=== PATIENT | female | born 1940 | race Two or more races ===

== ENCOUNTER → 2016-07-18 | Outpatient (CLI) | payer MEDICARE, OTHER, MEDICAID ==
[~2016-07-18] MED LIST: ADVIL200 MG PO; INDOCIN50 MG PO; LIPITOR40 MG PO; NEURONTIN300 MG PO; NOVOLOG100 UNIT/M SUB-Q; PRINIVIL (ZESTRI5 MG PO; PROTONIX40 MG PO; PROVENTIL OR V6.7 GM INH; REGLAN ORAL5 MG/5 ML PO; SUMATRIPTAN SUC25 MG PO; TOUJEO SOL300 UNIT/1 SUB-Q; TRIAMCINOLONE L60 ML TOP; TYLENOL EXTRA500 MG PO; ULTRAM50 MG PO
== END | disposition disaster alternative care site (69) ==
LOC: GBCOE 10:09
DX: Z12.31 Encounter for screening mammogram for malignant neoplasm of breast (principal)
CPT/HCPCS: G0202

== ENCOUNTER → 2016-09-04 | Outpatient (CLI) | payer MEDICARE, OTHER, MEDICAID | END | disposition disaster alternative care site (69) | LOC: GRAD 15:42 | DX: R51 Headache (principal); H53.2 Diplopia; H49.12 Fourth [trochlear] nerve palsy, left eye | CPT/HCPCS: A9577 ==

== ENCOUNTER 2016-09-07 11:21 | Inpatient (IN) | payer MEDICARE, OTHER, MEDICAID ==
[~2016-09-07] VITALS: Ht 157.5 cm; Wt 83.3 kg
--- NOTE | ~2016-09-07 | CON ---
[facility]GE[facility] 76 Y [address] ROOM: [place] [address] LOCATION: [facility] [place] ADMIT DATE: 09/07/2016 Consultation DISCHARGE DATE: FAMILY PHYSICIAN: Cheyenne Amaya MD ATTENDING PHYSICIAN: Digna JACKSON REFERRING PHYSICIAN: KAELYN SARAH MD REASON FOR CONSULT: Endoscopy. HISTORY OF PRESENT ILLNESS: This is a 76-year-old white female, who was admitted with a history of persistent nausea and vomiting in the setting of intractable migraine headaches and use of nonsteroidals. I was asked to see her in regard to regard to endoscopy in view of blood-tinged vomitus after a previous several episodes of vomiting. Her hemoglobin is stable. She denies any abdominal pain. She does carry a previous history of hiatal hernia and acid reflux disease. She also states that she ate at "[facility]" and may have some bearing to her symptoms of nausea, vomiting, and diarrhea. She has not had any further loose stools since after admission. She carries a remote history of C difficile colitis, but back in 2013. PAST MEDICAL HISTORY: 1. Hypertension. 2. Diabetes. 3. Osteoporosis. 4. Hiatal hernia and GERD. 5. Intractable back pains. PAST SURGICAL HISTORY: Cholecystectomy. MEDICATIONS: Multiple includin. Proventil inhaler. 2. Neurontin. 3. Lipitor. 4. Vitamin D. 5. Ibuprofen. 6. Insulin. 7. Lisinopril. 8. Tramadol. ALLERGIES: PATIENT'S NAME: [facility] AGE: 76 Y [address] ROOM: [place] [address] LOCATION: [facility] [place] ADMIT DATE: 09/07/2016 Consultation DISCHARGE DATE: FAMILY PHYSICIAN: Cheyenne Amaya MD ATTENDING PHYSICIAN: Digna JACKSON MULTIPLE NOTED IN THE RECORDS. SOCIAL HISTORY: Negative for smoking or alcohol use. PHYSICAL EXAMINATION: GENERAL: Elderly female, in no acute distress. VITAL SIGNS: Afebrile. Vital signs are otherwise stable. She is awake, alert and appropriate. HEENT: Nonicteric sclerae. Pupils round and reactive. NECK: Supple. No palpable nodes or thyromegaly. CHEST: Clear to auscultation. HEART: S1 and S2 normal. ABDOMEN: Soft and benign without palpable masses or tenderness. LABORATORY DATA: CBC is normal. IMAGING DATA: CT scan of the abdomen done in the ER did not reveal any acute abnormalities. ASSESSMENT AND PLAN: Elderly patient with intractable nausea, vomiting, possible Liat-Dickens tear in the setting of nonsteroidal use, diabetes, possible gastroparesis, and multiple other comorbidities. I agree with proton pump inhibitor. Follow up hematocrit and need for upper endoscopy for diagnostic and therapeutic purposes. Thank you for this consult. Further recommendations postendoscopy. EMILIAM MD TIGRE SARAH/phoebe /[id number] d: 09/07/16 2313 t: 09/08/16 0953, CONSULTATION REPORT
--- NOTE | ~2016-09-07 | OR ---
PATIENT'S NAME: RL KIM [facility] AGE: 76 Y [address] ROOM: [address] [address] LOCATION: [facility] [place] ADMIT DATE: 09/10/2016 OR/Procedure Report DISCHARGE DATE: FAMILY PHYSICIAN: Cheyenne Amaya MD ATTENDING PHYSICIAN: Digna JACKSON SURGEON: Kp Amador MD AMUSEMENT OR RECREATION CARD CHECKER: DATE OF PROCEDURE: 09/11/2016 PREOPERATIVE DIAGNOSIS: Chronic left-sided headaches with vision changes. POSTOPERATIVE DIAGNOSIS: Chronic left-sided headaches with vision changes. PROCEDURE PERFORMED: Left temporal artery biopsy. ANESTHESIA: MAC with local. SPECIMEN: Left temporal artery. ESTIMATED BLOOD LOSS: 5 mL. REASON FOR PROCEDURE: The patient is a 76-year-old female, who was admitted with nausea and vomiting. She has had a left-sided headache for several weeks now. A left temporal artery biopsy was requested. The risks and benefits were discussed. FINDINGS: We excised a centimeter and a half section of vessel where the palpable temporal artery was. It did have more of a vein appearance, but I could not find any other vessels in the area. PROCEDURE IN DETAIL: The patient was taken to the operating suite and placed in the supine position with the head rotated to the right side. We carefully palpated the left superficial temporal artery in front of the ear and marked its course. The area was then prepped and draped. Lidocaine was infiltrated into the area. A 3 cm vertical incision was made directly over the palpable pulse. The full-thickness skin was incised. Superficial fascial layer was then opened and a vessel was apparent directly underneath this, was fairly thin-walled. There was no longer pulse palpable in the area. We freed this up with blunt dissection. It was then tied off proximally and distally. There was a side branch that tore during the mobilization. We ended up taking 1 cm section of this as well. The ends were tied off with Vicryl suture. We did have a minor bleeding point that we tied off with a Monocryl suture. We then carefully explored the area. There were no other visible or palpable vessels. The wound was closed with subcuticular Monocryl. Dermabond was applied. PATIENT'S NAME: RL KIM [facility] AGE: 76 Y [address] ROOM: [id number] [place], [place] [address] LOCATION: [facility] [place] ADMIT DATE: 09/10/2016 OR/Procedure Report DISCHARGE DATE: FAMILY PHYSICIAN: Cheyenne Amaya MD ATTENDING PHYSICIAN: Digna JACKSON POSTPROCEDURE PLAN: The patient will be sent back to her room. She will resume diet and previous orders as before. MD PIERRE CLARK/modl /[id number] d: 09/11/16 1806 t: 09/26/16 1348, OPERATIVE SUMMARY
--- NOTE | ~2016-09-07 | ER ---
PATIENT'S NAME: RL NERI [facility] AGE: 76 Y [address] ROOM: [address] [place], [place] [address] [place] [facility] [place]: 09/07/2016 ER/Outpatient Report DISCHARGE DATE: FAMILY PHYSICIAN: Cheyenne Amaya MD ATTENDING PHYSICIAN: Digna PICKARD CHIEF COMPLAINT: Nausea and vomiting with abdominal pain. HISTORY OF PRESENT ILLNESS: Ms. Neri has been struggling with headaches on the left side of her face for the better part of 3 months. She has occasionally had some vomiting with severe pain, however, over the last 3 days, her vomiting has become near constant. She has had significant difficulty keeping up with her hydration and oral intake otherwise. She has been seeing her primary care physician for these issues, but feels she is not getting the relief she needs. She denies any other falls or other issues. She does have intermittent blurry vision, which is related to her headaches but is not new. She did have an MRI about 3 days ago. She has also been having some diarrhea associated with this in addition to night sweats for several months. She denies weight loss but does endorse some weight gain. No other acute issues at this time. PAST MEDICAL HISTORY: Documented on the record and reviewed by me. SOCIAL HISTORY: Documented on the record and reviewed by me. MEDICATIONS: Documented on the record and reviewed by me. ALLERGIES: DOCUMENTED ON THE RECORD AND REVIEWED BY ME. REVIEW OF SYSTEMS: All systems reviewed and negative except as noted in the HPI. PHYSICAL EXAMINATION: VITAL SIGNS: Blood pressure is 188/79, pulse 90, respiratory rate is 18, temperature 99.5, SpO2 is 98% on room air. Pain 0/10. GENERAL: An age-appropriate female, in no obvious pain or distress, recently vomited, sitting upright on the exam table. NEUROLOGIC: Awake and alert. GCS 15. No focal deficits. No asymmetry. HEENT: Normocephalic, atraumatic. Eyes are PERRL. Oropharynx is clear. NECK: Supple. Trachea is midline. PATIENT'S NAME: RL [facility]ERI [facility] AGE: 76 Y [address] ROOM: [address] [address] [place] [facility] [place]: 09/07/2016 ER/Outpatient Report DISCHARGE DATE: FAMILY PHYSICIAN: Cheyenne Amaya MD ATTENDING PHYSICIAN: Digna PICKARD CHEST: Heart is regular rate and rhythm with no murmurs. LUNGS: Clear to auscultation bilateral with no rhonchi, wheezes, or rales. ABDOMEN: Soft, slightly tender in the epigastrium. No rebound, guarding, or masses. BACK: Normal to inspection and palpation. EXTREMITIES: Warm and well perfused without appreciable edema or erythema. SKIN: Clean, dry, and intact. LABORATORY DATA AND X-RAYS: EKG was obtained and found to be consistent with sinus rhythm, rate of 90 with normal intervals and left axis deviation. No signs of acute dysrhythmia or ischemia. No comparison available. CMS with a creatinine of 1.4. GFR is 37. Review from April indicates baseline creatinine of approximately 0.7. No electrolyte abnormalities appreciated other than elevated glucose of 287. CK- MB and troponin are not elevated. CRP is 2.62. Urinalysis with no leukocytes or nitrites, some blood, micro is nondiagnostic. CBC without appreciable abnormality. INR is 1. Procalcitonin is 0.12. Serum lactate is 3.9. IMPRESSION: 1. Intractable nausea, vomiting. 2. Azotemia with likely acute kidney injury. 3. Lactic acidemia. EMERGENCY DEPARTMENT COURSE: The patient was seen and evaluated. She was given 2 doses of Zofran and a liter of normal saline. This markedly improved her vomiting but did not completely resolve it. She continued to have some vomiting. She was feeling better, however, with her acute kidney injury, she will need to be observed for improvement and ensure that she can adequately hydrated. All questions were answered, and the patient was admitted to the hospitalist service of Dr. Pickard for further evaluation and treatment. MD TONYA BRAVO/phoebe /[id number] d: 09/07/16 2316 t: 09/17/16 0702, OUTPATIENT REPORT
--- NOTE | ~2016-09-07 | DS ---
PATIENT'S NAME: RL KIM [facility] AGE: 76 Y [address] ROOM: [address] [place] [id number] LOCATION: [facility] [place] ADMIT DATE: 09/10/2016 Discharge Summary DISCHARGE DATE: 09/13/2016 FAMILY PHYSICIAN: Cheyenne Amaya MD ATTENDING PHYSICIAN: Digna Pickard ADMITTING DIAGNOSIS: Intractable nausea and vomiting. DISCHARGE DIAGNOSES: Erosive gastritis, migraine headache, acute kidney injury, and dehydration. SECONDARY DIAGNOSES: Diabetes mellitus type 2, acute kidney injury, migraine headache, and fourth nerve palsy. PROCEDURE: Left temporal artery biopsy and EGD. CONSULTATIONS: General Surgery for temporal artery biopsy, GI consultation for nausea and vomiting, and Neurology for migraine headache. HISTORY OF PRESENTING ILLNESS: The patient is a 76-year-old female with past medical history of diabetes mellitus type 2, hypertension, and GERD, who presents with intractable nausea and vomiting. The patient reports that for the past 2 days, she has been having intractable nausea and vomiting. She reports that she has been having nausea and vomiting closed to every other hour. The patient also reports that her nausea and vomiting is becoming darker with specks of blood. She denied rajani hematemesis. Of note, the patient has had ongoing headache for 2 weeks, associated with nausea, vomiting, and vertigo. However, for the past 2 weeks or so, her headache has subsided, and denies any history of vertigo. 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 The patient has had MRI done as an outpatient for her headache on September 04, 2016, which was unremarkable. HOSPITAL COURSE: The patient was admitted and was found to have acute kidney injury secondary to dehydration. The patient was placed on IV fluid and Protonix 40 mg IV b.i.d. The patient's symptoms somewhat improved, and the patient was seen by Dr. Horta with GI Department. The patient had an EGD done on September 08, which showed hiatal hernia and erosive gastritis. The patient was placed on Protonix 40 mg b.i.d. with improvement of nausea and vomiting. However, during her stay, the patient continued to have headache, which she claims as left-sided, associated with photophobia and nausea. She claims the pain as sharp and throbbing. Photophobia was mostly on her left eye. There was concern for temporal arteritis as the pain is located around the temporal. Initial ESR was below 50. ESR on the was 23. However, PATIENT'S NAME: RL KIM [facility] AGE: 76 Y [address] ROOM: [place] [address] LOCATION: [facility] [place] ADMIT DATE: 09/10/2016 Discharge Summary DISCHARGE DATE: 09/13/2016 FAMILY PHYSICIAN: Cheyenne Amaya MD ATTENDING PHYSICIAN: Digna Pickard due to history of recent diplopia and pain around the temporal, the patient was empirically started on 60 mg of p.o. prednisone and had biopsy done of the temporal arteritis. The patient was continued on prednisone for 2 days until biopsy showed negative for temporal arteritis. Also, her pain symptoms improved with Imitrex during her stay, which goes against temporal arteritis. Prednisone was stopped and the patient was discharged on sumatriptan 25 mg p.o. as needed. The patient was also seen by Dr. 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 The patient was given indomethacin 50 mg to be used if the patient has headache. The patient was only given full dose as the patient has history of GERD. The patient was also told to try indomethacin during this headache and if it is not improving with indomethacin not to continue with the second dose. The patient was also told to follow up with Dr. Cardona as an outpatient. On the day of discharge, the patient was headache free and in stable condition. The patient was also seen by Physical Therapy and was okayed to be discharged home. A long discussion was made about her cranial nerve fourth palsy and was told not to drive and to take extra precaution when going down the stairs. CONDITION: Stable. DISPOSITION: Home. DISCHARGE MEDICATIONS: Please see MAR. PENDING STUDIES: No pending studies. RECOMMENDATION: Not to drive and to take extra precaution going downstairs. FOLLOW-UP: To follow up with primary care physician and Dr. Cardona within 1 week. Greater than 30 minutes was spent on discharge planning. MD LYNN JAMESON/phoebe /[id number] d: 09/14/16614 t: 09/15/16 1749, DISCHARGE SUMMARY
--- NOTE | ~2016-09-07 | CON ---
PATIENT'S NAME: RL NERI [facility] AGE: 76 Y [address] ROOM: [address] [address] LOCATION: [facility] ADMIT DATE: 09/10/2016 Consultation DISCHARGE DATE: 09/13/2016 FAMILY PHYSICIAN: Cheyenne Amaya MD ATTENDING PHYSICIAN: Digna PICKARD DATE OF CONSULTATION: 09/13/2016 REFERRING PHYSICIAN: KAELYN SARAH MD NEUROLOGIC CONSULTATION DATE AND TIME: The patient was seen in neurological consultation on 09/13/2016 at 11:00 a.m. HISTORY OF PRESENT ILLNESS: Ms. Neri is here for treatment of pain into her left head. Apparently by history, she started having what sounds like paroxysmal hemicrania sharp pain that started sometime in May of this year. The pain was shooting pain that would come on occasion. Sometimes it would eventually become continuous consistent with paroxysmal hemicrania continua. I am not sure if she was given the typical medication, indomethacin. She said that she did get some type of pain medicine for, but it eventually went away. At some time around 6 weeks ago, she started to develop a sudden onset of a migraine-like headache around the left eye into the left temporal region. At about that same time, she immediately noted that her visual field in the left eye only was causing her to have double vision. This diplopia was clearly vertical as she saw many objects on top of each other when she would stare at a distance. She apparently was treated for short-term with prednisone and we are not sure, if she received an ESR blood test at that time. She seems to have improved with the pain on the prednisone and this was kept on board here in the hospital with the thought that maybe she had the temporal arteritis type of presentation. The patient did have an ESR reading that was less than 50 and at that time was briefly placed on prednisone. She absolutely denies any loss of vision in the left eye. She has what appears to be good visual acuity. She never experienced any claudication of her chewing or pain into her jaw or denied any problems with muscle pain or stiff neck. At no time did she experience any fever, meningismus, and was maintaining good range of motion, and mental status always remained normal. She denied any pain into her ears. She denied any new rashes such as zoster type rash. There is no excoriation of the skin that would be consistent with shingles episode. For her localized pain, now the patient has had a successful temporal artery biopsy of the left temporal artery. She has some local pain into that area. She says that Tylenol has not really helped her, only tramadol which she takes at home 50 mg is helpful. PATIENT'S NAME: RL NERI [facility] AGE: 76 Y [address] ROOM: [place] [address] LOCATION: [facility] ADMIT DATE: 09/10/2016 Consultation DISCHARGE DATE: 09/13/2016 FAMILY PHYSICIAN: Cheyenne Amaya MD ATTENDING PHYSICIAN: Digna PICKARD PRIOR MEDICAL HISTORY: 1. History of diabetes since 2002. She is insulin dependent since 2004. 2. Also history of hypertension. 3. Gastroesophageal reflux. 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 She lives alone here in [place]. She does not smoke and does not drink alcohol. FAMILY HISTORY: Father had coronary artery disease. There is no diabetes, otherwise, in the family. CURRENT MEDICATIONS: Include: 1. Prednisone 60 mg p.o. q.a.m. 2. Metoclopramide 10 mg 3 times a day with meals. 3. Gabapentin 900 mg q.a.m. 4. Atorvastatin 40 mg p.o. at bedtime. 5. Amlodipine 5 mg p.o. q. day. 6. Insulin detemir 17 units subcutaneous at bedtime. REVIEW OF SYSTEMS: Ms. Neri is a 76-year-old female patient who has a history of diabetes since 2002. 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 She had some pain medicines at that time, apparently she was taking tramadol. It is unclear exactly if this simply faded with time, but it sounded like it did. However, approximately 6 weeks ago, she developed an acute onset of pain in the left eye region, mostly in the left temporal region extending around the eye. She noticed immediately vertical diplopia where she was seeing objects stacked on top of each other. She denied ever having horizontal diplopia. She had no ptosis in the eye. There was no tearing of the eyes. She denied any loss of vision in that eye. She apparently went to an commercial insurance underwriter and he had either diagnosed her with a 3rd nerve palsy followed by a 4th nerve palsy. Today she clearly does have some subtle signs of a 4th nerve palsy. Again she never had any ptosis that would be more consistent with 3rd nerve palsy and she denied any horizontal diplopia. Her diabetic history is associated with oral medications until 2004 when she was started on insulin. She also has gastroesophageal reflux disease and gastritis. The rest of the review of systems here is negative. PHYSICAL EXAMINATION: GENERAL: The patient is sitting upright in the bed. She is pleasant. She answers all questions appropriately. She does occasionally cover up her left PATIENT'S NAME: RL NERI [facility] AGE: 76 Y [address] ROOM: [id number] [place], [place] [address] LOCATION: [facility] ADMIT DATE: 09/10/2016 Consultation DISCHARGE DATE: 09/13/2016 FAMILY PHYSICIAN: Cheyenne Amaya MD ATTENDING PHYSICIAN: Digna PICKARD eye due to the diplopia which is corrected. With covering up her left eye, she appears to be comfortable. She does not appear to be in any acute distress. NEUROLOGIC: She is not complaining about any headache. Her speech is clear and she has no alteration in her mentation. She gave an excellent history. Cranial nerves revealed evidence for correction of her 4th nerve palsy with turning of her head, tilted towards the right. This corrected the vertical diplopia on looking down. I did not appreciate any ophthalmoplegia though perhaps her eye on the left was a bit upward. At no time did she ever say her eye was down and out as a 3rd nerve type of process. There was normal facial sensation bilaterally in V1, V2, and V3. She had a bit of sensory perception pain on the left temporal region in the area of the temporal artery biopsy. She has no pain on opening up her jaw and closing it no pain. There was full masseteric power. She had normal sensation even into her mouth, there are no excoriations of the skin and no obvious signs of any rashes, excoriations, or old vesicles. Ears; the external canal appeared to be clear. Again no excoriations of the skin into her scalp. Her neck was supple on flexion and extension. She had no meningismus throughout. She had normal power of all four extremities, 5/5 grade power with normal bulk and tone. Normal coordination on [id number] and rapid alternating hand movements were normal. She had no pronator drift. I did not test her walking. IMPRESSION: It is clear that Ms. Neri had an acute onset of vertical double vision. It likely also appeared that she had pain associated with that vertical diplopia which persisted over time. 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 At the onset since it does involve infarction of the vasa nervorum surrounding the 4th nerve intracranially. There is no other intracranial abnormalities that I could see and no evidence of a 3rd nerve palsy. There is no other evidence to suggest that she had any meningismus signs presently. The initial paroxysmal hemicrania may return at some point in time, thus indomethacin 50 mg p.o. twice a day p.r.n. may be used and it is typically the drug of choice for that process. All in all, her pain should resolve with time as most diabetic eye neuropathies do. I do not see any need here for prednisone as we have no evidence of further temporal artery involvement such as claudication of the jaw or chewing problems, she can safely be taken off the prednisone. I really do appreciate Dr. Pickard's consultation on this interesting patient. MARI BRAR MD PATIENT'S NAME: RL NERI [facility] AGE: 76 Y [address] ROOM: [place] [address] LOCATION: [facility] ADMIT DATE: 09/10/2016 Consultation DISCHARGE DATE: 09/13/2016 FAMILY PHYSICIAN: Cheyenne Amaya MD ATTENDING PHYSICIAN: Digna PICKARD/phoebe /[id number] d: 09/13/[id number] t: 09/26/16 1738, CONSULTATION REPORT
--- NOTE | ~2016-09-07 | HP ---
PATIENT'S NAME: RL KIM [facility] AGE: 76 Y [address] ROOM: [place] [address] LOCATION: [facility] ADMIT DATE: 09/07/2016 History & Physical DISCHARGE DATE: FAMILY PHYSICIAN: Cheyenne Amaya MD ATTENDING PHYSICIAN: Digna JACKSON DATE OF SERVICE: CHIEF COMPLAINT: Intractable nausea, vomiting. HISTORY OF PRESENT ILLNESS: The patient is a 76-year-old female with past medical history of diabetes mellitus type 2, hypertension, and GERD, who presents here with intractable nausea, vomiting. The patient reports that for the past 2 days, she has been having intractable nausea and vomiting ongoing. She reports that she has been having nausea and vomiting close to every other hour. The patient reports that initially the nausea and vomiting was clear liquid, however, now it is becoming dark. She denies any rajani hematemesis. Of note, the patient has had a headache ongoing for 12 weeks, associated with nausea, vomiting, and vertigo. However, the patient reports that for the past two weeks or so, her headache has subsided and denies any history of vertigo. 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 However, reports that she has not been on steroids for close to 2 weeks. The patient also reports epigastric discomfort with her nausea and vomiting and reports that she has had a cholecystectomy done. The patient now denies any chest pain, shortness of breath, weakness, vertigo, dizziness, or fall. The patient had MRI done for her headache on September 04, 2016, which was unremarkable. The patient was brought in by her granddaughter and actually walked in to the emergency department and denies any history of ataxia. MEDICAL HISTORY: 1. Diabetes mellitus type 2. 2. Hypertension. 3. Hyperlipidemia. 4. Diabetic neuropathy. 5. Hyperlipidemia. 6. Asthma. 7. GERD. SURGICAL HISTORY: and cholecystectomy. PATIENT'S NAME: RL KIM [facility] AGE: 76 Y [address] ROOM: [place] [address] LOCATION: [facility] ADMIT DATE: 09/07/2016 History & Physical DISCHARGE DATE: FAMILY PHYSICIAN: Cheyenne Amaya MD ATTENDING PHYSICIAN: Digna JACKSON FAMILY HISTORY: Dad of heart disease. SOCIAL HISTORY: She is a retired nurse. She denies drinking and smoking. MEDICATIONS: Currently being reconciled. REVIEW OF SYSTEMS: All systems have been reviewed and are negative except for what I mentioned in the HPI. PHYSICAL EXAMINATION: VITAL SIGNS: Temperature 99.5, blood pressure 188/79, pulse rate of 80, respiratory rate of 18, and saturating 98% on room air. GENERAL APPEARANCE: The patient is lying on bed, holding emesis bag close to her. HEAD: Normocephalic, atraumatic. EYES: Extraocular muscle intact. However, the patient reports left-sided double vision when seen in and out. CHEST: Clear to auscultation bilaterally. HEART: Regular rate and rhythm. No murmurs, rubs, or gallops. ABDOMEN: Soft, nontender, and nondistended. SKIN: Warm to touch. [employer] SUPERVISOR: Alert and oriented x3. Motor and sensory grossly intact. No nystagmus noted. The patient is able to walk with no ataxia. MUSCULOSKELETAL: Range of motion intact. No obvious joint effusion seen. IMAGING DATA: CT abdomen shows a few scattered sigmoid colon diverticula with no evidence of diverticulitis, surgically absent gallbladder. LABORATORY DATA: The patient has a lactate of 3.9. Blood glucose of 263. Troponin x1 negative. White blood cell count of 8.7, hemoglobin of 12.8, platelet of 158. Creatinine of 1.4. Sodium of 137, potassium 4.2, chloride of 104, and CO2 of 22. AST 25, ALT 29, alkaline phosphatase 62, total bilirubin 1.1. ESR of 40. EKG shows normal sinus rhythm with no ischemic ST or T-wave changes. There are nonspecific T-wave changes on III. Other than that, no specific ischemic ST and T-wave changes. ASSESSMENT AND PLAN: PATIENT'S NAME: RL KIM [facility] AGE: 76 Y [address] ROOM: [place] [address] LOCATION: [facility] ADMIT DATE: 09/07/2016 History & Physical DISCHARGE DATE: FAMILY PHYSICIAN: Cheyenne Amaya MD ATTENDING PHYSICIAN: Digna JACKSON 1. Acute kidney injury. The patient is a 76-year-old female, presenting with intractable nausea, vomiting, and elevated creatinine, BUN. Creatinine is 1.4 with a baseline creatinine of 0.7. Etiology is most likely secondary to prerenal. We will treat underlying etiology. We will hold lisinopril and other nephrotoxin agents. Continue IV fluid and acquire CMS daily. 2. Intractable nausea, vomiting. The patient is presenting with 2 days' history of intractable nausea, vomiting. Initially, the patient's vomit was clear, however, it is getting darker and also with specks of blood. The patient has a history of hiatal hernia and gastroesophageal reflux disease. We will start the patient on Protonix 40 mg IV b.i.d. Start on clear liquid diet and consult GI for possible EGD evaluation. Also continue supportive care with Zofran, IV fluid for nausea and vomiting. 3. Diabetes mellitus type 2. Blood glucose uncontrolled. Since the patient has not had any diets, we will start the patient on Detemir 15 units q.h.s. and low-sliding scale insulin with aspart. Accu-Chek a.c. and h.s. We will follow the patient clinically. 4. Headache, now resolved. From the history appears headache was migraine. We will have Tylenol p.r.n. as needed. 5. Hyperlipidemia. Continue Lipitor. 6. Asthma. Start DuoNeb as needed. 7. Gastroesophageal reflux disease. On Protonix. Greater than 60 minutes was spent on the patient's care. 50% of the time was spent with direct patient's care. Assessment and plan was discussed with the patient and Dr. Horta of GI Department. Plan to scope the patient to have EGD tomorrow morning. We will admit the patient for observation for intractable nausea, vomiting, and acute kidney injury. Code status on admission, full code. MD TOMI NATHAN/modl /[id number] D: [id number] HISTORY & PHYSICAL
[2016-09-07 12:48] LABS: BASOPHIL % 0.2 %; EOSINOPHIL % 0.1 %; HEMATOCRIT 38.1 % (33.0-46.0); HEMOGLOBIN 12.8 g/dL (10.0-15.0); IMMATURE GRANULOCYTE # 0.1 K/uL (0.0-0.3); IMMATURE GRANULOCYTE % 0.6 %; LYMPHOCYTE # 1.1 K/uL (0.8-4.0); MCH 32.7 pg (27.0-34.0); MCHC 33.6 gm/dL (32.0-36.5); MCV 97.4 fl (83.0-98.0); MONOCYTE # 0.4 K/uL (0.0-1.0); MONOCYTE % 4.6 %; MPV 10.3 fl (9.4-12.4); NEUTROPHIL # (ANC) 7.1 K/uL (1.8-7.8); NEUTROPHIL % 81.5 %; NRBC % 0 /100WBC (0-0.00); PLATELET COUNT 158 K/uL (150-450); RDW-CV 12.8 % (11.9-14.6); WBC 8.7 K/uL (4.0-11.0)
[2016-09-07 12:49] LABS: RBC 3.91 M/uL (3.50-5.50)
[2016-09-07 12:54] LABS: INR - (THERAPEUTIC) 1.06 (0.92-1.07); PROTIME 11.1 SECONDS (9.8-11.4); PTT 23 SECONDS (25-32)
[2016-09-07 13:02] LABS: ALBUMIN 3.8 gm/dL (3.5-5.0); ALK PHOS 62 IU/L (33-138); ALT 29 IU/L (12-78); ANION GAP 15.2 (10.0-19.0); AST 25 IU/L (10-40); BLOOD UREA NITROGEN 21 mg/dL (6-24); CALCIUM 9.5 mg/dL (8.5-10.5); CHLORIDE 104 mMol/L (96-110); CO2 22 mMol/L (22-32); CREATININE 1.4 mg/dL (0.5-1.1); ESTIMATED GFR (MDRD EQUATION) 37; POTASSIUM 4.2 mMol/L (3.7-5.1); SODIUM 137 mMol/L (135-145); TOTAL BILIRUBIN 1.1 mg/dL (0.0-1.5); TOTAL PROTEIN 7.7 g/dL (6.0-8.4)
[2016-09-07 13:33] LABS: BILIRUBIN URINE NEGATIVE (NEGATIVE); BLOOD URINE 10 /UL (NEGATIVE); COLOR URINE YELLOW (YELLOW); GLUCOSE URINE 1000 mg/dL (NEGATIVE); KETONE URINE 50 mg/dL (NEGATIVE); LEUKOCYTES URINE NEGATIVE /UL (NEGATIVE); NITRITE URINE NEGATIVE (NEGATIVE); PROTEIN URINE 15 mg/dL (NEGATIVE); SPEC GRAVITY URINE 1.015 (1.003-1.035); TURBIDITY URINE CLEAR (CLEAR); UROBILINOGEN URINE NORMAL (NORMAL)
[2016-09-07 13:53] LABS: BACTERIA URINE FEW (NEGATIVE); EPITHELIAL URINE 0-2 #/HPF (NEGATIVE); HYALINE CAST URINE 0-2 #/LPF (NEGATIVE); RBC URINE 0-2 #/HPF (NEGATIVE)
[2016-09-07] MEDS ORDERED: PROVENTIL OR V6.7 GM INH (17:06)
[2016-09-07] MEDS ORDERED: ULTRAM50 MG PO (17:06)
[2016-09-07] MEDS ORDERED: PRINIVIL (ZESTRI5 MG PO (17:07)
[2016-09-07] MEDS ORDERED: TOUJEO SOL300 UNIT/1 SUB-Q (17:07)
[2016-09-07] MEDS ORDERED: TRIAMCINOLONE L60 ML TOP (17:07)
[2016-09-07] MEDS ORDERED: LIPITOR40 MG PO (17:08)
[2016-09-07] MEDS ORDERED: NEURONTIN300 MG PO ×2 (17:08→17:09)
[2016-09-07] MEDS ORDERED: ADVIL200 MG PO (17:09)
[2016-09-07] MEDS ORDERED: NOVOLOG100 UNIT/M SUB-Q (17:09)
--- NOTE | 2016-09-07 17:41 | NUR ---
76 Y/O FEMALE ADMITTED FOR INTRACTABLE NAUSEA & VOMITING FOR THE PAST 2 DAYS WELL ACUTE KIDNEY INJURY. PT HAS SEVERE REACTION TO VITAMIN D = SEVERE N/V IN PAST AND TOLD TO TAKE VIT D ON SATURDAY HER LEVELS WERE LOW, PT HAD MRI FOR HEADACHES & DOUBLE VISION SHE HAS BEEN HAVING OVER THE LAST 10 WEEKS ON SATURDAY (=NEG) AND THEN WENT TO EAT AT [facility], PT HAS BEEN TAKING SOME IBUPROFEN FOR HER HEADACHES & PT DOES HAVE A HISTORY OF C-DIFF BACK IN AND ON SATURDAY MORNING WHEN THIS BEGAN PT HAS 6 BOUTS OF VOMITING & DIARRHEA ALMOST HOURLY. NO DIARRHEA SINCE THEN ONLY BILE EMESIS. ALLERGIES - PENICILLINS, ASA & VITAMIN D MEDICAL & SURGICAL HISTORY - HISTORY OF SHINGLES X2 IN PAST, C-DIFF [id number], PT HAS A DRY, REDISH RASH THAT IS OVER HER ENTIRE BODY PT STATES THIS HAS BEEN ONGOING SINCE MARCH, SEASONAL ALLERGIES, HTN, LAKESHIA LWR LEG, ANKLE & FOOT EDEMA, HIATAL HERNIA, HEMORRHOIDS, COLON POLYPS, GERD, ARTHRITIS, OSTEOPORSIS. [place], BILAT CATARACT W/ IOLI, C/SECTIONS X3 REPORT GIVEN TO PT PRIMARY CARE NURSE EDDIE REYES
--- NOTE | 2016-09-07 19:21 | NUR ---
Significant Event: Pt AO. SM emesis x3 since arrival to floor. IVF started to L hand, 1x dose IV Valium gave per MD order. ACHS accuchecks, 306. SSI not on eMAR at this time, passed on to night nurse RN. PT has some possible eczema patches all over body. Can have clear liquid diet, NPO at midnight. Dr Horta consulted. Plan for EGD in am. Follow up: SSI, permits, monitor vomiting
[2016-09-08 00:26] LABS: HEMATOCRIT 32.9 % (33.0-46.0); HEMOGLOBIN 11.5 g/dL (10.0-15.0)
[2016-09-08 04:39] LABS: ALBUMIN 3.1 gm/dL (3.5-5.0); ANION GAP 11.7 (10.0-19.0); CALCIUM 8.1 mg/dL (8.5-10.5); POTASSIUM 3.7 mMol/L (3.7-5.1); TOTAL BILIRUBIN 0.9 mg/dL (0.0-1.5); TOTAL PROTEIN 6.4 g/dL (6.0-8.4)
--- NOTE | 2016-09-08 05:02 | NUR ---
Significant Event: Patient alert and oriented X 4. UP with stand by assist. NS running at 125 to L) hand. Nausea/vomiting on and off thoruought shift. Seems to get worse with ambulation. Zofran given last at 0440. Voiding well. NPO. EGD this AM. check list started. Denies pain Follow up:
[2016-09-08 12:04] LABS: HEMATOCRIT 35.2 % (33.0-46.0); HEMOGLOBIN 12.1 g/dL (10.0-15.0)
--- NOTE | 2016-09-08 18:48 | NUR ---
Significant Event: PT WENT TO HAVE AN EGD THIS AM. PT WAS HAVING NAUSEA AND DRY HEAVING WITH ANY MOVEMENT, HEADACHE, LEFT FACE NERVE PAIN AND BLURRED VISION IN LEFT EYE. PT WAS GIVEN SEVERAL NAUSEA MEDS DURING PROCEDURE AND IN PACU. SHE WAS ORDERED TO RECIEVE REGLAN AT 1300 AND EVERY 6HRS. SHE WAS GIVEN DOSE LAST AT 1800. PT WAS GIVEN TRAMADOL FOR HEADACHE. PT HAS BEEN ABLE TO TOLERATE CLEAR LIQUIDS WITHOUT NAUSEA. SHE IS AWAKE, WATCHING TV, VISITING WITH VISITOR WITH LIGHTS ON. PT WAS COVERING HER LEFT EYE SO SHE WAS GIVEN A PATCH, WITH RELIEF VERBALIZED. HER BLOOD SUGAR BEFORE SUPPER WAS 245 AND WAS GIVEN 4 UNITS OF INSULIN.
[2016-09-09 05:19] LABS: BASOPHIL % 0.3 %; EOSINOPHIL % 0.3 %; HEMATOCRIT 30.6 % (33.0-46.0); HEMOGLOBIN 10.5 g/dL (10.0-15.0); IMMATURE GRANULOCYTE % 0.5 %; LYMPHOCYTE # 1.5 K/uL (0.8-4.0); LYMPHOCYTE % 19.3 %; MCH 33.4 pg (27.0-34.0); MCHC 34.3 gm/dL (32.0-36.5); MCV 97.5 fl (83.0-98.0); MONOCYTE # 0.7 K/uL (0.0-1.0); MONOCYTE % 9.7 %; MPV 9.7 fl (9.4-12.4); NEUTROPHIL # (ANC) 5.3 K/uL (1.8-7.8); NEUTROPHIL % 69.9 %; NRBC % 0 /100WBC (0-0.00); PLATELET COUNT 137 K/uL (150-450); RBC 3.14 M/uL (3.50-5.50); RDW-CV 12.7 % (11.9-14.6); WBC 7.6 K/uL (4.0-11.0)
[2016-09-09 05:33] LABS: ANION GAP 9.7 (10.0-19.0); BLOOD UREA NITROGEN 19 mg/dL (6-24); CALCIUM 7.4 mg/dL (8.5-10.5); CHLORIDE 111 mMol/L (96-110); CO2 27 mMol/L (22-32); CREATININE 0.9 mg/dL (0.5-1.1); ESTIMATED GFR (MDRD EQUATION) > 60; POTASSIUM 3.7 mMol/L (3.7-5.1); SODIUM 144 mMol/L (135-145)
--- NOTE | 2016-09-09 05:34 | NUR ---
Significant Event: Patient rests throughout the night. Denies pain. States eye patch seems to be helping. Up with one assist to bathroom. No reports of nausea or vomiting. Alert and orientated. Blood sugar at HS was 276. Follow up: Continue to monitor.
--- NOTE | 2016-09-09 19:05 | NUR ---
Significant Event: Pt did not have nausea this am but had a headache. She was given ultram with relief noted. She was able to eat breakfast and lunch. Ultram was again given at 1406 for headache. Pt did not get as much relief from that dose. She was able to shower and visit with her granddaughter. Pt's blood sugars were 108, 146 and 156. Pt's had 2 saline locks, the right one infiltrated with flush prior to med and the left one was leaking. IV were removed. notified and changed reglan to po. Pt was up independently or sba to the bathroom.
--- NOTE | 2016-09-10 05:09 | NUR ---
Significant Event: Patient's up with stand-by assist. Still having some blurred vision in her left eye and has an eye patch she wears during the day. She also complained of a headache to left side and receieved Tramadol at 2009 which was helpful. Complaints of a little nausea but not to bad. Reglan was changed to TID 30 minutes before meals. Alert and orientated, pleasant and cooperative. Follow up: Possible discharge today.
[2016-09-10 12:35] LABS: HEMOGLOBIN 11.8 g/dL (10.0-15.0)
--- NOTE | 2016-09-10 13:53 | NUR ---
Met with patient at bedside today. Introduced myself and the role of the CM department. Patient has a daughter that lives here in [place], but she is on vacation in [place] right now. 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 Patient lives alone at her own apartment at [facility]. She plans to return there once medically cleared for discharge. She is willing to have home health care and would prefer this service until her daughter comes home from [place] which will be in 2 weeks. Patient would like to use [facility] so I will make a referral to them. I also reviewed the Medicare Outpatient Observation Notice with her and she signed the form. Per Apurva Rosales who is doing her UR, they have sent patients information to [facility]. Will continue to follow and offer supports.
--- NOTE | 2016-09-10 17:21 | NUR ---
Significant Event: Patient alert and oriented. Up to the bathroom ad hermelinda and ambulated in the hallway with standby assist. Up in the chair for meals. Patient c/o a headache and received Ultram 50 mg x 2 doses with the last at 1310 and Tylenol 500 mg at 1143. Warm blanket to the L) side of her head at times. Accuchecks have been 61/74, 116 and 166 with no sliding scale insulin needed. 2 units of Novolog insulin given at breakfast per carb count. New order for Dr Amador to consult for a L) temporal artery biopsy in the am. NPO after midnight. Follow up: OR tomorrow.
--- NOTE | 2016-09-11 03:20 | NUR ---
SIGNIFICANT EVENT: Pt alert & oriented. Ultram at 2204 and has already requested the next dose to be given at 0400 (pt got up to bathroom and LOPEZ began again, acute). Hypertensive at times - 130 to 157/64 to 73. Other VSS on RA. SBA in Room. ACHS accuchecks with carb counts. No IV access at this time. Diabetic diet. Pleasant and cooperative with cares.
--- NOTE | 2016-09-11 09:45 | NUR ---
Notified this morning that patient is having a procedure this morning and the plan is to discharge to home if she tolerates the procedure without complications. Plan was to have home health care for patient. Will check on chart when patient returns to the floor to see if Face to Face is filled out. Natanael with [facility] did come and see patient today and got all of her paperwork. Will reassess when patient returns to the floor.
--- NOTE | 2016-09-11 16:07 | NUR ---
A-NUTRITION F/U ENDO THIS AM. LABS REVIEWED MEDS: NOVOLOG, PROTONIX, REGLAN, DELTASONE, LEVEMIR DIET RX: LOW FAT. PO INTAKE HAS BEEN BITES-75%. EST NUTR NEEDS: [id number] KCALS AND 60-75 GM PROTEIN D-AT NUTRITION RISK W/INADEQUATE ORAL INTAKE R/T POOR APPETITE, NPO STATUS AEB INTAKE RECORDS, UNINTENDED WT LOSS MSW. I-START ENSURE ENLIVE BID W/MEALS TO PROVIDE ADDITIONAL NUTRIENTS M/E-GOAL: PO INTAKE >/=50% BY DISCHARGE 1)F/U PO INTAKE, SUPPLEMENT ACCEPTANCE/INTAKE, AND POC IN 2-4 DAYS 2)ASSIST NEEDED
--- NOTE | 2016-09-11 17:01 | NUR ---
Significant Event: Patient alert and oriented x3. To surgery at 0840 and returned at 1245. 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 IV to R) FA. Up with 1 person stand by. Patient ambulated in lindsey this afternoon with PT and was up in recliner. Patient complains of headache and Tramadol 50mg given with minimal relief noted. Imitrex 25mg orally given around 1500 with relief noted. ACCU checks have been 235 and 159 with 2 units given prior to surgery. Patient recieved 6 units of insulin per carb count for lunch. New order to increase to moderate sliding scale insulin. Follow up: Ambulate this evening. Possible dismissal tomorrow.
--- NOTE | 2016-09-11 18:47 | NUR ---
I have reviewed and agree with charting done by Margarita Antonio, [employer] [facility] student nurse for the shift from [id number].
--- NOTE | 2016-09-12 04:18 | NUR ---
Significant Event: Patient alert and oriented X4. Up ad hermelinda in room. Complaints of head ache off and on throughout the night. IMetrix given X2 last at 0319. Regular diet. ACHS accuchecks Incision L) restorationist. Working with PT. Carb count insulin. Denies any nausea this shift. IV to L) forearm. passing gas ok. Hoping to go home today. Follow up: Monitor head ache
--- NOTE | 2016-09-12 11:00 | NUR ---
Phone call from Natanael at [facility] wanting to know discharge time for patient. She is hoping patient will be able to discharge by noon because she would be able to have a nurse assess and admit her to home health care this afternoon. If she does not discharge until later in the da, [facility] will not be able to see her until Saturday. notified MALLORY Adame of hope for early dismissal. She was seeing patient now, but will need to wait for Dr. Pickard to see for final decision on discharge today. Fax cover sheet on chart for nurse or CM to fax discharge orders and face to face to Natanael at [facility] since I am out this afternoon.
--- NOTE | 2016-09-12 15:37 | NUR ---
Significant Event: Patient alert and oriented x3. IV to R) FA. Up independently in room. ACHS ACCU checks with additional carb count-moderate scale. ACCU checks have been 230 and 182. Incision on left restoration with internal sutures and skin glue. C/O headache thoughout day. Imitrex given x1 at 1156-relief noted. Patient showered today but did NOT have a BM. Patient reports passing gas. Worked with PT today. Denies nausea. Tolerating food well. Follow up: Possible dismissal tomorrow.
--- NOTE | 2016-09-13 03:22 | NUR ---
Significant Event: Patient alert and orineted X4. Up ad hermelinda in room. Patient was wanting to call for imetrex because she thought she would need it, but ended up not needing it. Voiding well. Daily weight done. IV to R) forearm saline locked. Was planning on discharging yesterday, but Dr. Pickard was wanting to talk to a rhematologist before she was discharged. L) temporal incision closed with skin glue. Denies pain with incision. No pain meds or nausea meds given this shift. ACHS accuchecks with carb count. Passing gas, but no BM since 09/06. Did give pt some prune juice. Hoping to go home today. Follow up: Monitor bm/head ache
--- NOTE | 2016-09-13 13:00 | NUR ---
Spoke to Dr. Pickard about patient and discharge plans. He states that he is waiting to hear from the Pedodontist before discharging her. He has already spoke to Dr. Cardona and it sounds like he has cleared patient for discharge. Will continue to follow patient and assist with discharge plan. Unknown at this time if she will need home health care or not.
[2016-09-13] MEDS ORDERED: PROTONIX40 MG PO (13:47)
[2016-09-13] MEDS ORDERED: TYLENOL EXTRA500 MG PO (13:48)
[2016-09-13] MEDS ORDERED: SUMATRIPTAN SUC25 MG PO (13:53)
[2016-09-13] MEDS ORDERED: INDOCIN50 MG PO (13:58)
--- NOTE | 2016-09-13 14:18 | NUR ---
A - NUTRITION FOLLOW-UP NO NEW LABS MEDS: MOD SSI. PT IS ON LEVEMIR, REGLAN AND PREDNISONE. DIET: LOW FAT W/ ENSURE ENLIVE BID. INTAKE 100% X3 MEALS ON 09/12; 75-100% OF BREAKFAST THIS MORNING PER RECORD. OBSERVED LUNCH TRAY, HAD 100%. DISLIKES ENSURE ENLIVE. PT REPORTED GOOD APPETITE. TO BE DISCHARGED TODAY. EST NEEDS: [id number] KCAL, 60-75 GRAMS PROTEIN, FLUID NEEDS: 1ML/KCAL D - NUTRITION PROBLEM RESOLVED. I - DISCONTINUE ENSURE ENLIVE PER PT'S REQUEST M/E - GOAL: PT WILL CONTINUE TO CONSUME >75% OF MEALS IN 5-7 DAYS.
--- NOTE | 2016-09-13 15:49 | NUR ---
DISCHARGE: Pt. was explained discharge instructions, educated on migraines and tension headaches, and educated on new medications: indomethicin, imitrex, protonix, and tylenol extra strength. No questions or concerns, verbalized understanding of teaching. Left with all belongings and prescriptions. Awaiting ride home from granddaughter. Will have home health at home.
== END 2016-09-13 17:12 | disposition disaster alternative care site (69) | DRG 41 ==
LOC: GMED 11:21 → GMSU 15:16
PROVIDERS: Emergency Medicine; Internal Medicine; Nurse Practitioner Family; Physician Assistant; ADMIT Internal Medicine
PROC: 0DB88ZX Excision of Small Intestine, Via Natural or Artificial Opening Endoscopic, Diagnostic (ICD-10-PCS; principal; 2016-09-08)
PROC: 03BT0ZX Excision of Left Temporal Artery, Open Approach, Diagnostic (ICD-10-PCS; 2016-09-11)
DX: G44.51 Hemicrania continua (principal); N17.9 Acute kidney failure, unspecified; E11.42 Type 2 diabetes mellitus with diabetic polyneuropathy; E11.65 Type 2 diabetes mellitus with hyperglycemia; H49.10 Fourth [trochlear] nerve palsy, unspecified eye; D62 Acute posthemorrhagic anemia; E86.0 Dehydration; K29.00 Acute gastritis without bleeding; I10 Essential (primary) hypertension; K44.9 Diaphragmatic hernia without obstruction or gangrene; K20.9 Esophagitis, unspecified; K31.9 Disease of stomach and duodenum, unspecified; J45.909 Unspecified asthma, uncomplicated; K21.9 Gastro-esophageal reflux disease without esophagitis; Z90.49 Acquired absence of other specified parts of digestive tract; Z79.4 Long term (current) use of insulin
CPT/HCPCS: C9113; J0690; J2001; J2405; J2765; J3360; J7030; J7512

== ENCOUNTER 2016-09-30 15:44 | Emergency (ER) | payer MEDICARE, OTHER, MEDICAID ==
--- NOTE | ~2016-09-30 | ER ---
PATIENT'S NAME: INES KIMA Vani [facility] AGE: 76 Y [address] ROOM: [place] [address] LOCATION: ED ADMIT DATE: 09/30/2016 ER/Outpatient Report DISCHARGE DATE: 09/30/2016 FAMILY PHYSICIAN: Cheyenne Amaya MD ATTENDING PHYSICIAN: Deejay Orlando Time of Arrival: 1554 hours. Time of Evaluation: 1605 hours. CHIEF COMPLAINT: Nausea and vomiting. HISTORY OF PRESENT ILLNESS: The patient is a 76-year-old female, who presents to the emergency department today with chief complaint of nausea and vomiting. She reports this started about 7 days prior to arrival, about 6 times today. Denies any fevers or chills. No urinary frequency, urgency, or painful urination. No blood in her stool. No dark tarry stools. She does have some abdominal pain with vomiting. It is otherwise 0/10 in severity. PAST MEDICAL HISTORY: Neuropathy, hiatal hernia, and insulin-dependent diabetes. PAST SURGICAL HISTORY: C-sections and gallbladder. SOCIAL HISTORY: The patient denies any tobacco, alcohol, or illicit drug use. ALLERGIES: PENICILLIN. MEDICATIONS: 1. Zofran. 2. Carafate. 3. NovoLog. REVIEW OF SYSTEMS: All systems are reviewed by myself and are negative with the exception of those discussed in HPI and past medical history. PHYSICAL EXAMINATION: VITAL SIGNS: Weight 81.7 kg, blood pressure 172/77, pulse 75, respiratory rate 16, temperature 99.3, oxygen saturation 91% on room air. GENERAL: The patient is a 76-year-old female, who appears stated age, in no PATIENT'S NAME: RL KIM [facility] AGE: 76 Y [address] ROOM: [place] [address] LOCATION: [facility] ADMIT DATE: 09/30/2016 ER/Outpatient Report DISCHARGE DATE: 09/30/2016 FAMILY PHYSICIAN: Cheyenne Amaya MD ATTENDING PHYSICIAN: Deejay Orlando acute distress. HEENT: Normocephalic, atraumatic. Pupils are equal, round, and reactive to light. Mucous membranes are mildly dry. NECK: Supple. There is no nuchal rigidity. CARDIOVASCULAR: Regular rate and rhythm. No murmurs, rubs, or gallops. LUNGS: Clear to auscultation bilaterally. No wheezes, rales, or rhonchi. ABDOMEN: Soft, mild diffuse tenderness to palpation. No rebound, rigidity, or guarding. Positive bowel sounds. MUSCULOSKELETAL: The patient moves all 4 extremities. SKIN: Warm and dry. LABORATORY DATA AND X-RAYS: CBC is normal. CMP is normal except for creatinine 1.3. LFTs are normal. Amylase is normal. Lipase is 84. Lactate is normal. Procalcitonin is less than 0.05. A CT scan of the abdomen and pelvis is pending. IMPRESSION: 1. Nausea and vomiting. 2. Please see Dr. Shepard's dictation. EMERGENCY DEPARTMENT COURSE: The patient was brought back to the examination room. Seen and evaluated by myself. IV is established. Laboratory analysis and imaging are obtained as described above. The patient is given 1 L of normal saline, 10 mg of Compazine, as well as 25 mg of Benadryl IV. She was given another liter of normal saline. I have discussed the results with Dr. Shepard at shift change. He will follow up on CT imaging of the patient's abdomen and pelvis. DISPOSITION: Per Dr. Shepard. DO RONNI ALCARAZ/modl /[id number] d: 10/03/16853 t: 10/08/162032, OUTPATIENT REPORT
--- NOTE | ~2016-09-30 | ER ---
PATIENT'S NAME: RL KIM [facility] AGE: 76 Y [address] ROOM: [place] [address] LOCATION: ED ADMIT DATE: 09/30/2016 ER/Outpatient Report DISCHARGE DATE: 09/30/2016 FAMILY PHYSICIAN: Cheyenne Amaya MD ATTENDING PHYSICIAN: Deejay Orlando HISTORY OF PRESENT ILLNESS: This patient is a 76-year-old who comes in with nausea and vomiting today. She had some diarrhea the beginning of the week, but none today. She has been not feeling well for about 7 days. The patient initially saw Dr. Orlando here in the emergency department. See Dr. Orlando's dictation in regards to the history of present illness, past medical history, physical exam, and laboratory study results. Dr. Orlando transferred the patient's care over to me at shift change. He asked me to follow up with the patient's CT scan of the abdomen and pelvis results, final diagnosis, and treatment plan. CT scan of the abdomen and pelvis was stable. No acute changes. No free air or free fluid. No bowel obstruction. No other bowel or solid organ changes. She did have some patchy changes in the bibasilar areas of the lungs bilaterally. IMPRESSION: Nausea and vomiting. PLAN: The patient was dismissed home. Observation. Activity as tolerated. Fluids, diet as tolerated. Continue home medications and care. Sent home with Compazine 10 mg 4 times a day p.r.n. nausea, vomiting, #20, Benadryl 25 mg 4 times a day x5 days. Follow up with personal physician in 2 to 3 days or sooner if needed. Discussion ensued with the patient concerning my findings and recommendations, she understands. MD JUNIOR BAUTISTA/modl /[id number] d: 10/01/16 0134 t: 10/01/16 1811, OUTPATIENT REPORT
[~2016-09-30 15:44] MED LIST changes: -REGLAN ORAL5 MG/5 ML PO
[2016-09-30 16:59] LABS: BASOPHIL % 0.7 %; EOSINOPHIL # 0.1 K/uL (0.0-0.5); EOSINOPHIL % 1.3 %; HEMATOCRIT 35.2 % (33.0-46.0); HEMOGLOBIN 11.8 g/dL (10.0-15.0); IMMATURE GRANULOCYTE % 0.2 %; LYMPHOCYTE # 0.9 K/uL (0.8-4.0); LYMPHOCYTE % 20.6 %; MCH 32.9 pg (27.0-34.0); MCHC 33.5 gm/dL (32.0-36.5); MCV 98.1 fl (83.0-98.0); MONOCYTE # 0.4 K/uL (0.0-1.0); MONOCYTE % 8.4 %; MPV 9.3 fl (9.4-12.4); NEUTROPHIL # (ANC) 3.1 K/uL (1.8-7.8); NEUTROPHIL % 68.8 %; NRBC % 0 /100WBC (0-0.00); RBC 3.59 M/uL (3.50-5.50); WBC 4.5 K/uL (4.0-11.0)
[2016-09-30 17:01] LABS: PLATELET COUNT 224 K/uL (150-450)
[2016-09-30 17:21] LABS: ALBUMIN 3.3 gm/dL (3.5-5.0); ANION GAP 13.1 (10.0-19.0); CALCIUM 8.9 mg/dL (8.5-10.5); CREATININE 1.3 mg/dL (0.5-1.1); POTASSIUM 4.1 mMol/L (3.7-5.1); TOTAL BILIRUBIN 0.9 mg/dL (0.0-1.5); TOTAL PROTEIN 7.3 g/dL (6.0-8.4)
[2016-09-30 18:07] LABS: BILIRUBIN URINE NEGATIVE (NEGATIVE); BLOOD URINE NEGATIVE /UL (NEGATIVE); COLOR URINE YELLOW (YELLOW); GLUCOSE URINE NEGATIVE (NEGATIVE); KETONE URINE 50 mg/dL (NEGATIVE); LEUKOCYTES URINE 100 /UL (NEGATIVE); NITRITE URINE NEGATIVE (NEGATIVE); PROTEIN URINE 15 mg/dL (NEGATIVE); TURBIDITY URINE 1+ (CLEAR); UROBILINOGEN URINE NORMAL (NORMAL)
[2016-09-30 18:16] LABS: BACTERIA URINE FEW (NEGATIVE); RBC URINE 0-2 #/HPF (NEGATIVE)
== END 2016-09-30 19:32 | disposition disaster alternative care site (69) ==
LOC: GMED 15:44
PROVIDERS: Emergency Medicine
DX: R11.2 Nausea with vomiting, unspecified (principal); E11.40 Type 2 diabetes mellitus with diabetic neuropathy, unspecified; Z88.0 Allergy status to penicillin; Z79.899 Other long term (current) drug therapy; Z79.4 Long term (current) use of insulin
CPT/HCPCS: J0780; J1200; J7030; Q9967

== ENCOUNTER 2016-10-26 11:19 | Inpatient (IN) | payer MEDICARE, OTHER, MEDICAID ==
[~2016-10-26] VITALS: Ht 157.5 cm; Wt 79.7 kg
--- NOTE | ~2016-10-26 | HP ---
PATIENT'S NAME: RL KIM [facility] AGE: 76 Y [address] ROOM: [place] [address] LOCATION: [facility]U ADMIT DATE: 10/26/2016 History & Physical DISCHARGE DATE: FAMILY PHYSICIAN: Cheyenne Amaya MD ATTENDING PHYSICIAN: AMANDA PANDYA DATE OF SERVICE: CHIEF COMPLAINT: Nausea, vomiting, and decreased mental status. HISTORY OF PRESENT ILLNESS: This is a 76-year-old lady with a past medical history of hypertension, type 2 diabetes, and a recent admission to our facility with intractable nausea and vomiting. She came in with similar complaints of intractable nausea, vomiting, and multiple episodes of emesis which were nonbloody and nonbilious in nature, had been happening all this morning as well as yesterday. Denied seeing any blood in it. The patient is very drowsy, and most of the history was obtained from the ER physician as well as the granddaughter who also works here. She, on my encounter, denied any fever or having any pain. She denied any palpitation, shortness of breath, sputum production, dizziness, or any burning on urination. PAST MEDICAL HISTORY: Diabetes mellitus, type 2; hypertension; hyperlipidemia; diabetic neuropathy; asthma; and GERD. FAMILY HISTORY: Father had coronary artery disease. 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 MEDICATIONS: Being reconciled right now. REVIEW OF SYSTEMS: All other systems reviewed and were negative except what is mentioned in the HPI. ALLERGIES: NKDA PHYSICAL EXAMINATION: VITAL SIGNS: Blood pressure 138/79, temperature 99, respiratory rate of 16, and pulse 110. GENERAL: In moderate acute distress due to retching and vomiting. She is alert and oriented to herself at this point. PATIENT'S NAME: RL KIM [facility] AGE: 76 Y [address] ROOM: [place] [address] LOCATION: [facility]U ADMIT DATE: 10/26/2016 History & Physical DISCHARGE DATE: FAMILY PHYSICIAN: Cheyenne Amaya MD ATTENDING PHYSICIAN: AMANDA PANDYA HEENT: Head: Atraumatic, normocephalic. Eyes: Nonicteric. No pallor. Oropharynx: Dry mucous membranes. CARDIOVASCULAR: Tachycardic. S1 and S2. No murmurs, gallops, or rubs. LUNGS: Clear to auscultation bilaterally. ABDOMEN: Soft, nontender, and nondistended. Bowel sounds are present. EXTREMITIES: No clubbing, cyanosis, or edema. PSYCHIATRIC: Low-volume speech. Flat affect. NEUROLOGIC: Cranial nerves 2 through 12 intact. No motor or sensory deficit noted. ENDOCRINE: No myxedema appreciated at this point. No cushingoid features or thyromegaly present. MUSCULOSKELETAL: There is diffuse muscle tenderness everywhere. No joint swelling noted. SKIN: Dry skin without any blemishes. LABORATORY DATA: Lab work done in the emergency department had an EKG which showed sinus tachycardia without any acute ST-T wave changes. CT scan of the abdomen was done which was unremarkable and no change from the previous CT scan. VBG was done which showed actually pH of 7.5, carbon dioxide of 19, and PO2 of 50. Lactate was 6.5. Troponins less than 0.04. CBC was unremarkable except platelets 163. CMP was remarkable for creatinine of 1.5, BUN 30, and anion gap of 21. Total bilirubin of 1.5. Hemoglobin A1c of 7. UA was negative. She had positive ketones in the blood. Lipase was 48. ASSESSMENT AND PLAN: 1. Diabetic ketoacidosis. 2. Lactic acidosis. 3. Acute kidney injury, prerenal. 4. Insulin-dependent diabetes mellitus. 5. Acute encephalopathy. 7. Intractable nausea and vomiting. This has been a recurrent problem. Because of the high glucose and ketones present as well as anion gap, I am going to treated her with diabetic ketoacidosis protocol without any insulin bolus. Aggressive volume resuscitation. This recurrent problem does make me wonder if she has adrenal insufficiency. We are going to get random cortisol level and give her prednisone or hydrocortisone. Supportive care with nausea and vomiting control. Further care will depend on her progress in the hospital. AMANDA PANDYA MD PATIENT'S NAME: RL KIM [facility] AGE: 76 Y [address] ROOM: [id number] [place] [id number] LOCATION: [facility] ADMIT DATE: 10/26/2016 History & Physical DISCHARGE DATE: FAMILY PHYSICIAN: Cheyenne Amaya MD ATTENDING PHYSICIAN: AMANDA PANDYA /[id number] D: 632 T: 657 HISTORY & PHYSICAL
--- NOTE | ~2016-10-26 | PUL ---
PATIENT'S NAME: RL KIM [facility] AGE: 76 Y [address] ROOM: [address] [address] LOCATION: GPCU ADMIT DATE: 10/26/2016 Pulmonary DISCHARGE DATE: FAMILY PHYSICIAN: Cheyenne Amaya MD ATTENDING PHYSICIAN: AMANDA PANDYA NAME OF PROCEDURE: Overnight Pulse Oximetry DATE OF PROCEDURE: October 28 to October 29, 2016 REASON FOR EXAM: Nocturnal hypoxemia RESULTS: The test was performed on room air. The recording time was 9 hours, 59 minutes, and 32 seconds. The highest pulse of 91 per minute, lowest pulse was 59 per minute, with a mean pulse of 68 per minute. Highest SpO2 recorded was 100%, with the lowest SpO2 recorded was 73%, with a mean SpO2 of 92.9%. The total time the patient has saturation less than 88% is approximately 11 minutes. The desaturation event index was elevated at 15.6. PHYSICIAN INTERPRETATION: The patient has evidence of significant nocturnal hypoxia and would qualify for supplemental oxygen as per Medicare criteria. Sleep study is recommended. MD MILEY SERRATO/sarkis /[id number] dtt: 11/01/16 1634 , BERYL RAMIRES dtd: 10/29/16 1315
--- NOTE | ~2016-10-26 | ER ---
PATIENT'S NAME: RL KIM [facility] AGE: 76 Y [address] ROOM: [address] [address] LOCATION: [facility] ADMIT DATE: 10/26/2016 ER/Outpatient Report DISCHARGE DATE: FAMILY PHYSICIAN: Cheyenne Amaya MD ATTENDING PHYSICIAN: AMANDA MENARD Time of Arrival: 1119. Time of Evaluation: 1130. IDENTIFICATION: A 76-year-old female. CHIEF COMPLAINT: Illness. HISTORY OF PRESENT ILLNESS: The patient is a 76-year-old female who presents by EMS with nausea and vomiting. The patient was just here September 30 with the same complaints. The patient is a poor historian and really not answering any questions or with one- word sentences only. Daughter and granddaughter have been present, report that this is a recurrent issue. Later though it was identified that the recurrent issue was the nausea vomiting, the not answering the questions and altered mental status is new today. She was here again September 30 with nausea, vomiting, and fever. Workup was unremarkable. She did see GI and Reglan was discussed. Per the family, this episode is different because they think she is having pain and she has diabetes mellitus insulin requiring, which is not well controlled. Past medical history was reviewed from old records because the daughter really was not a good historian as far as her past medical history and the patient was unable to answer those questions as well. The patient was hospitalized September 10 to with intractable nausea and vomiting. Diagnosed with erosive gastritis, migraine headache, acute kidney injury, and dehydration. ALLERGIES: NO NOTED ALLERGIES THAT I COULD IDENTIFY. CURRENT MEDICATIONS: 1. Tramadol 50 mg q.6 hours p.r.n. 2. Albuterol 2 puffs q.4 hours p.r.n. 3. Triamcinolone lotion b.i.d. 4. Lisinopril 5 mg daily. 5. Toujeo 19 units at bedtime. 6. Atorvastatin 40 mg at bedtime. 7. Gabapentin 900 mg daily q.a.m., 600 mg at bedtime. 8. NovoLog insulin 10 units t.i.d. with meals. PATIENT'S NAME: RL KIM [facility] AGE: 76 Y [address] ROOM: [facility] [place], [place] [address] LOCATION: [facility] ADMIT DATE: 10/26/2016 ER/Outpatient Report DISCHARGE DATE: FAMILY PHYSICIAN: Cheyenne Amaya MD ATTENDING PHYSICIAN: AMANDA MENARD 9. Pantoprazole 40 mg b.i.d. 10. Acetaminophen 500 mg q.6 hours p.r.n. 11. Sumatriptan 25 mg q.2 hours p.r.n. 12. Indomethacin 50 mg q.8 hours p.r.n. MEDICAL PROBLEMS: Erosive gastritis, migraine headache, acute kidney injury, dehydration, diabetes mellitus type 2 insulin requiring, fourth nerve palsy congenital, hypertension, hyperlipidemia, diabetic neuropathy, hyperlipidemia, asthma, gastroesophageal reflux disease, recurrent nausea vomiting. PRIOR SURGERIES: section and cholecystectomy. 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 Tobacco use, denies. Alcohol use, denies. REVIEW OF SYSTEMS: Really unable to obtain from the patient. FAMILY HISTORY: Records reflect father secondary to heart disease. Again, unable to obtain from the patient. PHYSICAL EXAMINATION: VITAL SIGNS: Blood pressure 138/79, pulse 110, respirations 16, temperature 99.4, and saturations 99% on room air. GENERAL: A 76-year-old female who was shaking and really not answering much of our questions, in mild distress. HEENT: Head: Normocephalic. Eyes: Pupils equal and reactive to light and accommodation. Extraocular movements intact. Nose: Mucosa pink. No lesions. Mouth: No lesions. Pharynx benign. Mucous membranes are dry. Oropharynx benign. NECK: Supple. No lymphadenopathy. No nuchal rigidity. LUNGS: Clear to auscultation. Breath sounds are equal. HEART: Regular rate and rhythm. No murmur, rub, or gallop. ABDOMEN: Bowel sounds present. Soft, nondistended. Diffusely tender to mild palpation. No rebound or guarding. SKIN: [place], warm, and dry. No lesions or rashes noted. NEURO: The patient is awake and alert. I am unable to determine orientation. Cranial nerves II through XII grossly intact. Motor strength 5/5 throughout. Sensation is intact to light touch. LABORATORY DATA AND X-RAYS: PATIENT'S NAME: RL KIM [facility] AGE: 76 Y [address] ROOM: [address] [address] LOCATION: [facility]PCU ADMIT DATE: 10/26/2016 ER/Outpatient Report DISCHARGE DATE: FAMILY PHYSICIAN: Cheyenne Amaya MD ATTENDING PHYSICIAN: AMANDA MENARD EKG: Normal sinus rhythm at 96 beats per minute. No acute ST elevation or depression. Q-waves noted in leads III and F. Cath UA: Specific gravity 1.015, pH 6, 2 to 5 white cells, 0 to 2 red cells, 0 to 2 epithelial cells. Urine culture pending. Blood cultures x2 pending. Sodium 137, potassium 3.8, chloride 101, CO2 of 18. BUN 30; creatinine 1.5, which was 1.3 on September 30, 0.9 September 09. Blood sugar 397. Liver enzymes normal. VBG: PH 7.58, pCO2 of 19, bicarb 17.8, lactate elevated at 6.5. Hemoglobin 13.3, hematocrit 38.6, platelets 163, white count 9.9 with 86% segs, 5% bands. INR 1.17. CRP less than 0.29. Lipase normal at 48. PHP elevated to 25. A1c 7.0. Procalcitonin less than 0.05. Troponin I less than 0.040. One-view chest, no acute process, pending Radiology over-read. CT abdomen and pelvis with no contrast. No acute findings. No clear explanation for pain. Stable masslike enlargement of the pancreatic tail. 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 Head CT, no acute process. IMPRESSION: 1. Recurrent episodes of nausea vomiting of uncertain etiology. 2. Diabetic ketoacidosis. 3. Altered mental status. 4. Arthritis. 5. Neuropathy. PLAN: The patient was given 1 L of normal saline bolus, Zofran 4 mg IV push, insulin drip started without bolus just insulin drip. Dr. Menard evaluated the patient in the emergency room and planned for admission to [facility]. CASE POLK MD CAR/modl /[id number] d: 10/26/169 t: 10/27/16 1244, OUTPATIENT REPORT
--- NOTE | ~2016-10-26 | DS ---
PATIENT'S NAME: RL KIM [facility] AGE: 76 Y [address] ROOM: [id number] [place], [place] [address] LOCATION: GPCU ADMIT DATE: 10/26/2016 Discharge Summary DISCHARGE DATE: 10/29/2016 FAMILY PHYSICIAN: Cheyenne Amaya MD ATTENDING PHYSICIAN: Yesenia Menard CHIEF COMPLAINT ON PRESENTATION: Ongoing intractable nausea and vomiting complicated by diabetes ketoacidosis in known insulin-dependent diabetic. ADMISSION DIAGNOSIS: Diabetic ketoacidosis. SECONDARY DIAGNOSES: 1. Insulin-dependent type 2 diabetes mellitus. 2. Essential hypertension. 3. Hyperlipidemia. 4. Diabetic neuropathy. 5. Asthma. 6. Gastroesophageal reflux disease. 7. Intractable nausea and vomiting, likely secondary to gastroparesis. 8. Acute kidney injury, prerenal, resolved. 9. Lactic acidosis, resolved. 10. Acute encephalopathy, resolved. PENDING LABS AND TESTS AT TIME OF DISCHARGE: Gastric emptying study to be performed by Dr. Horta with GI, per patient report to be done tomorrow October 30, 2016. HOSPITAL COURSE: This is a very pleasant 76-year-old female, who presented to the hospital with again an another episode of intractable nausea, vomiting, and this time had developed confusion. This is an ongoing and recurrent issue since July per her report, where she will develop progressive nausea and vomiting. This time, she did present in DKA as well, no obvious infectious source following workup was able to be determined nor was there any significant change in insulin dosing of late to predispose patient to high sugars and DKA presentation. Emesis was noted to be nonbloody and nonbilious in nature here in the hospital; however, she does note that she has significant bile in vomitus when outside of the hospital. She was treated on admission with a DKA protocol, IV fluids, and subsequently insulin drip. Adrenal insufficiency was of concern given recurrent nausea and vomiting, however, cortisol level was 43 drawn randomly. From a nausea and vomiting standpoint, the patient did respond to conservative and symptomatic therapies initially and had no further episodes following the date of admission. She recovered from her DKA with closed anion gap and returned to her home insulin dosing upon discharge. Of note in the hospital, she was on detemir 10 units q.a.m. and 5 units in the evenings with sugars that were still ranging in the PATIENT'S NAME: RL KIM [facility] AGE: 76 Y [address] ROOM: [id number] [place], [place] [address] LOCATION: GPCU ADMIT DATE: 10/26/2016 Discharge Summary DISCHARGE DATE: 10/29/2016 FAMILY PHYSICIAN: Cheyenne Amaya MD ATTENDING PHYSICIAN: Yesenia Menard A low 200s, so it was felt safe to discharge her home on her previous insulin Toujeo dose of 19 units nightly. Also of note during her stay, the patient was found to be hypoxic nocturnally on trend ox. This will likely warrant home oxygen therapy, which will be set up on discharge. Unfortunately, following the stay as mentioned above, there is no obvious reason for this recurrent nausea and vomiting, but we will look to gastric emptying study scheduled for tomorrow as probable cause and treat supportively if found to be significant gastroparesis. MEDICATION CHANGES: No pertinent changes to home insulin nor antiemetics upon discharge. CONSULTANTS: None. CONDITION/PHYSICAL EXAMINATION: At the time of discharge, latest vitals: Temp 97.8, pulse 79, respirations 16, blood pressure 118/61, saturating 95% on room air. GENERAL: The patient is alert, oriented. No confusion noted. CARDIOVASCULAR: Heart is regular rate and rhythm without murmur. LUNGS: Clear to auscultation bilaterally. Normal effort on room air. ABDOMEN: Soft, nontender, nondistended. EXTREMITIES: Without edema. DISCHARGE LABORATORIES: Most pertinent lab at the time of discharge to include sodium 143, potassium 3.3 (replaced prior to discharge), chloride 107, CO2 of 29, glucose 198, creatinine 1.0, and cortisol 43.5 as noted above. DISPOSITION: The patient to be discharged home with Home Health Care to resume. She will see GI tomorrow with gastric emptying study and follow up with her PCP in one week with a BMP at that visit as well as review of her recent glucose logs. Time spent on date of discharge including direct patient care and coordination of discharge was 35 minutes. MD JAY PAK/phoebe /[id number] d: 10/29/16 2359 t: 10/30/16805, DISCHARGE SUMMARY
[~2016-10-26 11:19] MED LIST changes: -REGLAN ORAL5 MG/5 ML PO
[2016-10-26 11:53] LABS: HEMATOCRIT 38.6 % (33.0-46.0); HEMOGLOBIN 13.3 g/dL (10.0-15.0); MCH 32.4 pg (27.0-34.0); MCHC 34.5 gm/dL (32.0-36.5); MCV 93.9 fl (83.0-98.0); MPV 10.4 fl (9.4-12.4); PLATELET COUNT 163 K/uL (150-450); RBC 4.11 M/uL (3.50-5.50); RDW-CV 12.2 % (11.9-14.6); WBC 9.9 K/uL (4.0-11.0)
[2016-10-26 11:58] LABS: INR - (THERAPEUTIC) 1.17 (0.92-1.07); PROTIME 12.3 SECONDS (9.8-11.4)
[2016-10-26 12:15] LABS: ALBUMIN 4.3 gm/dL (3.5-5.0); ANION GAP 21.8 (10.0-19.0); CALCIUM 9.6 mg/dL (8.5-10.5); CREATININE 1.5 mg/dL (0.5-1.1); POTASSIUM 3.8 mMol/L (3.7-5.1)
[2016-10-26 12:16] LABS: BANDED NEUTROPHIL # 0.5 K/uL (0.0-0.1); BANDED NEUTROPHILS % 5 %; LYMPHOCYTE # 0.4 K/uL (0.8-4.0); LYMPHOCYTE % 4 %; MONOCYTE # 0.5 K/uL (0.0-1.0); SEGMENTED NEUTROPHIL # 8.5 K/uL (1.8-7.8); SEGMENTED NEUTROPHIL % 86 %
[2016-10-26 12:20] LABS: BILIRUBIN URINE NEGATIVE (NEGATIVE); BLOOD URINE 25 /UL (NEGATIVE); COLOR URINE YELLOW (YELLOW); GLUCOSE URINE 1000 mg/dL (NEGATIVE); KETONE URINE 150 mg/dL (NEGATIVE); LEUKOCYTES URINE NEGATIVE /UL (NEGATIVE); NITRITE URINE NEGATIVE (NEGATIVE); PROTEIN URINE 30 mg/dL (NEGATIVE); SPEC GRAVITY URINE 1.015 (1.003-1.035); TURBIDITY URINE CLEAR (CLEAR); UROBILINOGEN URINE NORMAL (NORMAL)
[2016-10-26 12:23] LABS: BICARBONATE 17.8 mmol/L (18.0-23.0); PCO2 19 mmHg (35-45); PO2 50 mmHg (80-90)
[2016-10-26 12:24] LABS: LACTATE 6.5 mEq/L (0.50-1.60)
[2016-10-26 12:26] LABS: TOTAL BILIRUBIN 1.5 mg/dL (0.0-1.5)
[2016-10-26 12:28] LABS: BACTERIA URINE FEW (NEGATIVE); EPITHELIAL URINE 0-2 #/HPF (NEGATIVE); HYALINE CAST URINE 0-2 #/LPF (NEGATIVE); RBC URINE 0-2 #/HPF (NEGATIVE)
[2016-10-26] MEDS ORDERED: REGLAN ORAL5 MG/5 ML PO (18:17)
[2016-10-26 18:19] LABS: ANION GAP 15.6 (10.0-19.0); POTASSIUM 3.6 mMol/L (3.7-5.1)
[2016-10-26 21:38] LABS: ANION GAP 12.6 (10.0-19.0); POTASSIUM 3.6 mMol/L (3.7-5.1)
[2016-10-27 01:44] LABS: ANION GAP 13.3 (10.0-19.0); POTASSIUM 3.3 mMol/L (3.7-5.1)
[2016-10-27 10:05] LABS: ANION GAP 11.7 (10.0-19.0); POTASSIUM 3.7 mMol/L (3.7-5.1)
[2016-10-27 11:02] LABS: BASOPHIL % 0.1 %; HEMATOCRIT 38.9 % (33.0-46.0); IMMATURE GRANULOCYTE # 0.1 K/uL (0.0-0.3); IMMATURE GRANULOCYTE % 0.8 %; LYMPHOCYTE # 1.2 K/uL (0.8-4.0); LYMPHOCYTE % 8.7 %; MCH 32.3 pg (27.0-34.0); MCHC 33.4 gm/dL (32.0-36.5); MCV 96.5 fl (83.0-98.0); MONOCYTE # 1.5 K/uL (0.0-1.0); MONOCYTE % 10.9 %; MPV 10.1 fl (9.4-12.4); NEUTROPHIL # (ANC) 10.7 K/uL (1.8-7.8); NEUTROPHIL % 79.5 %; NRBC % 0 /100WBC (0-0.00); PLATELET COUNT 147 K/uL (150-450); RBC 4.03 M/uL (3.50-5.50); RDW-CV 12.2 % (11.9-14.6); WBC 13.5 K/uL (4.0-11.0)
[2016-10-27 11:56] LABS: ANION GAP 13.7 (10.0-19.0); CALCIUM 8.7 mg/dL (8.5-10.5); CREATININE 1.1 mg/dL (0.5-1.1); POTASSIUM 3.7 mMol/L (3.7-5.1)
[2016-10-28 12:54] LABS: BASOPHIL % 0.1 %; EOSINOPHIL % 0.2 %; HEMATOCRIT 36.6 % (33.0-46.0); HEMOGLOBIN 12.3 g/dL (10.0-15.0); IMMATURE GRANULOCYTE % 0.4 %; LYMPHOCYTE # 2.1 K/uL (0.8-4.0); LYMPHOCYTE % 25.2 %; MCH 32.8 pg (27.0-34.0); MCHC 33.6 gm/dL (32.0-36.5); MCV 97.6 fl (83.0-98.0); MONOCYTE % 11.9 %; NEUTROPHIL # (ANC) 5.1 K/uL (1.8-7.8); NEUTROPHIL % 62.2 %; NRBC % 0 /100WBC (0-0.00); PLATELET COUNT 121 K/uL (150-450); RBC 3.75 M/uL (3.50-5.50); RDW-CV 12.1 % (11.9-14.6); WBC 8.2 K/uL (4.0-11.0)
[2016-10-28 13:11] LABS: ALBUMIN 3.3 gm/dL (3.5-5.0); ANION GAP 10.3 (10.0-19.0); CALCIUM 8.3 mg/dL (8.5-10.5); CREATININE 1.1 mg/dL (0.5-1.1); POTASSIUM 3.3 mMol/L (3.7-5.1); TOTAL BILIRUBIN 1.1 mg/dL (0.0-1.5); TOTAL PROTEIN 6.5 g/dL (6.0-8.4)
[2016-10-29 04:42] LABS: BASOPHIL % 0.5 %; EOSINOPHIL # 0.1 K/uL (0.0-0.5); EOSINOPHIL % 1.4 %; HEMATOCRIT 33.4 % (33.0-46.0); HEMOGLOBIN 11.4 g/dL (10.0-15.0); IMMATURE GRANULOCYTE % 0.2 %; LYMPHOCYTE # 2.2 K/uL (0.8-4.0); LYMPHOCYTE % 33.6 %; MCH 33.1 pg (27.0-34.0); MCHC 34.1 gm/dL (32.0-36.5); MCV 97.1 fl (83.0-98.0); MONOCYTE # 0.8 K/uL (0.0-1.0); MONOCYTE % 12.5 %; MPV 10.3 fl (9.4-12.4); NEUTROPHIL # (ANC) 3.4 K/uL (1.8-7.8); NEUTROPHIL % 51.8 %; NRBC % 0 /100WBC (0-0.00); PLATELET COUNT 108 K/uL (150-450); RBC 3.44 M/uL (3.50-5.50); WBC 6.6 K/uL (4.0-11.0)
[2016-10-29 04:58] LABS: ANION GAP 10.3 (10.0-19.0); CALCIUM 8.2 mg/dL (8.5-10.5); POTASSIUM 3.3 mMol/L (3.7-5.1); TOTAL BILIRUBIN 1.2 mg/dL (0.0-1.5); TOTAL PROTEIN 5.7 g/dL (6.0-8.4)
== END 2016-10-29 18:55 | disposition home health service (06) | DRG 637 ==
LOC: GMED 11:19 → GPCU 15:03
PROVIDERS: Family Medicine; ADMIT Internal Medicine
DX: E13.10 Other specified diabetes mellitus with ketoacidosis without coma (principal); G93.40 Encephalopathy, unspecified; N17.9 Acute kidney failure, unspecified; E27.40 Unspecified adrenocortical insufficiency; G47.34 Idiopathic sleep related nonobstructive alveolar hypoventilation; K31.84 Gastroparesis; E86.0 Dehydration; I10 Essential (primary) hypertension; Z79.4 Long term (current) use of insulin; J45.909 Unspecified asthma, uncomplicated; R09.02 Hypoxemia; E78.5 Hyperlipidemia, unspecified; K21.9 Gastro-esophageal reflux disease without esophagitis
CPT/HCPCS: C9113; J1644; J1720; J2405; J2550; J2765; J3480; J7040; J7050; J7120; J7121

== ENCOUNTER → 2016-10-26 | Outpatient (CLI) | payer MEDICARE, OTHER, MEDICAID ==
[~2016-10-26] MED LIST changes: +REGLAN ORAL5 MG/5 ML PO
== END | disposition disaster alternative care site (69) ==
LOC: GAMB 10:55
DX: R50.9 Fever, unspecified (principal); I47.1 Supraventricular tachycardia; E10.9 Type 1 diabetes mellitus without complications; R11.2 Nausea with vomiting, unspecified; R41.0 Disorientation, unspecified
CPT/HCPCS: A0425; A0427; J7030

== ENCOUNTER → 2016-10-30 | Outpatient (CLI) | payer MEDICARE, OTHER, MEDICAID ==
[~2016-10-30] MED LIST changes: +REGLAN ORAL5 MG/5 ML PO
== END | disposition disaster alternative care site (69) ==
LOC: GRAD 08:00
DX: K44.9 Diaphragmatic hernia without obstruction or gangrene (principal); K21.9 Gastro-esophageal reflux disease without esophagitis; K22.8 Other specified diseases of esophagus; R11.2 Nausea with vomiting, unspecified

== ENCOUNTER → 2016-11-01 | Outpatient (CLI) | payer MEDICARE, OTHER, MEDICAID | END | disposition disaster alternative care site (69) | LOC: GRAD 10-29 11:00 | DX: K44.9 Diaphragmatic hernia without obstruction or gangrene (principal); R11.2 Nausea with vomiting, unspecified; R93.3 Abnormal findings on diagnostic imaging of other parts of digestive tract | CPT/HCPCS: A9541 ==